=== PATIENT | male | born 1950 | race Caucasian/White ===

== ENCOUNTER → 2019-04-25 | Outpatient (CLI) | payer OTHER ==
[~2019-04-25] VITALS: Ht 180.3 cm; Wt 99.3 kg
[~2019-04-25] MED LIST: ALFUZOSIN HCL10 MG PO; AMITRIPTYLINE H25 M3 PO; ASPIR 8181 MG PO; BENTYL 10 MG CA10 MG PO; FLUOCINOLONE AC20 ML OTIC; MOBIC15 MG PO; PANTOPRAZOLE SO40 M1 PO; PROSCAR 5MG TABL5 MG PO; VITAMIN B-12500 MCG PO; ZESTRIL20 MG PO
--- NOTE | 2019-04-26 08:29 | EKG ---
[place] [address] [facility] [email or web address] [address] ELECTROCARDIOGRAM REPORT Name: JOAN CANTRELL [facility] [id number] ������������������ Admission: 04/25/19 ������������������ Attend Phys: Hugo Calvillo MD Discharge: ������������������ Date of : 46 Report #: [id number] ����������������������������������������������������������������� [id number] THIS REPORT FOR: //name// [facility] Test Date: 2019-04-25 Test Time: 09:52:46 Pat Name: JOAN CANTRELL Department: Room: Gender: M Master Baker: LIN : 1950 Requested By: Deysi English Order Number: [id number] MD: Yevgeniy Schroeder Measurements Intervals [place] Rate: 43 P: 44 MI: 155 QRS: 33 QRSD: 118 T: 75 QT: 488 QTc: 413 Interpretive Statements Sinus bradycardia Otherwise no significant abnormality Compared to ECG 11/11/1999 09:01:34 No significant change was found Electronically Signed On 04-26-2019 8:29:25 CDT by Yevgeniy Schroeder [email or web address] ��������������������������������������������� <ELECTRONICALLY SIGNED> ���������������������������������������� By: Yevgeniy Schroeder MD, [facility] ��������������������������������������������� 04/26/19 0829 1 Yevgeniy Schroeder MD, [facility] /EPI
--- NOTE | 2019-04-26 16:39 | P ---
[facility] [place] [address] PROCEDURE REPORT Name: JOAN CANTRELL Room #: REG [facility]#: [id number] Admission: 04/25/19 ������������������ Attend Phys: Hugo Calvillo MD Discharge: ������������������ Date of : 46 Report #: [id number] THIS REPORT FOR: //name// CC: Hugo Trujillo MD DATE OF SERVICE: 04/25/2019 BRIEF HISTORY: The patient is a 68-year-old male with history of colon polyps for high risk screening exam. PREOPERATIVE DIAGNOSIS: High risk screening colonoscopy due to history of colon polyps. POSTOPERATIVE DIAGNOSES: 1. Multiple colon polyps. 2. Small internal hemorrhoids. MEDICATIONS: Deep sedation with propofol per anesthesia. SPECIMENS: 1. Ascending colon polyps x 2. 2. Polyp at 40 cm. ESTIMATED BLOOD LOSS: 3 mL. PROCEDURE: Colonoscopy to cecum and terminal ileum with biopsy. FINDINGS: Prior to propofol sedation, procedure of colonoscopy discussed with the patient as well as potential risks and its complications. He indicates he understands and desires to proceed. DESCRIPTION OF PROCEDURE: With the patient in left lateral decubitus position, digital examination was completed, which revealed no abnormalities. Subsequently, the Olympus video colonoscope was introduced in the rectum, advanced under direct vision to the cecum. This was done with minimal difficulty. The cecum was identified by the ileocecal valve and the appendiceal orifice. I was able to visualize the distal segment of the terminal ileum, which was inspected and noted to be unremarkable. At that point, scope was slowly withdrawn and careful circumferential views obtained including retroflexing the scope in the ascending colon. Upon slow withdrawal of the scope, the prep was good. The mucosa was within normal limits, normal vascular pattern and normal light reflex. As we withdrew the scope, he was noted to have two diminutive polyps in the proximal ascending colon, which removed with biopsy forceps. The scope was further withdrawn and no additional abnormalities were [facility] [address] [place] [address] PROCEDURE REPORT Name: JOAN CANTRELL Room #: REG [facility].#: [id number] Admission: 04/25/19 ������������������ Attend Phys: Hugo Calvillo MD Discharge: ������������������ Date of : 46 Report #: [id number] noted until the sigmoid colon was reached at which point, another diminutive polyp was seen and removed with biopsy forceps. The scope was withdrawn into the rectum and on retroflexion, small hemorrhoids were seen. No abnormalities were identified. Scope was withdrawn. The patient tolerated the procedure well. CONDITION OF THE PATIENT UPON DISCHARGE: Following procedure, the patient drowsy, aroused, conversant and will be discharged home when fully ambulatory. INSTRUCTIONS TO THE PATIENT AND FAMILY AT THE TIME OF DISCHARGE: Three diminutive polyps removed as described above. We will follow up on path. If all three are adenomas, return in three years; if only one or two adenomas, then he is to return in five years. If none are adenomas, 10 years would be indicated. Suggest high fiber diet. He will return under the care of Dr. Joseph Trujillo and return to see me as needed. It is noted on digital rectal exam that the patient has an enlarged prostate, which is slightly asymmetrical, but no nodules or masses were felt. We will discuss with the patient. ��������������������������������������������� <ELECTRONICALLY SIGNED> ���������������������������������������� By: Hugo Calvillo MD ��������������������������������������������� 04/26/19 1639 0915 1144 Hugo Calvillo MD /nt
--- NOTE | 2019-04-26 17:05 | PATH ---
[facility] [address] [place] [address] PATHOLOGY RPT PROCEDURE Name: JOAN CANTRELL ISABELLE Room #: REG [facility]#: [id number] ������������������ Admission: 04/25/19 ������������������ Date of : 46 Discharge: Report #: [id number] Path Case #: [id number] [facility] Accession Number: [id number] . 01 Material submitted: . PART A: colon - BX POLYP AT PROXIMAL ASCENDING COLON X2. Modifiers: ascending, proximal PART B: colon - BX POLYP AT 40CM . 01 Clinical history: . Colon polyps, hemorrhoids . 02 Diagnosis: A. Polyp x2, at proximal ascending colon, endoscopic biopsy: - All fragments showing tubular adenoma. - Negative for high-grade dysplasia. . B. Polyp, at 40 cm, endoscopic biopsy: - Tubular adenoma. - Negative for high-grade dysplasia. (IUV:hyacinth; 04/26/2019) QMS/04/26/2019 . 02 Electronically signed: . Ashley Simpson MD, Pathologist NPI- [id number] . 01 Gross description: . A. The specimen is received in formalin, labeled "Joan Cantrell, BX polyp proximal ascending colon x2", are 4 irregular fragments of stewart soft tissue measuring 0.3 x 0.3 x 0.1 cm in aggregate, entirely submitted in A1. . B. The specimen is received in formalin, labeled "Joan Cantrell, BX polyp at 40 cm", is a stewart soft tissue measuring 0.3 x 0.2 cm, entirely submitted in B1. ([facility]; 04/25/2019) SHS/SHS . 02 Pathologist provided ICD-10: D12.2, D12.6 . 02 CPT . 932566, 254693 Specimen Comment: A courtesy copy of this report has been sent to Specimen Comment: [phone], . Specimen Comment: Report sent to / [place] [address] PATHOLOGY RPT PROCEDURE Name: JOAN CANTRELL ISABELLE Room #: REG [facility]#: [id number] ������������������ Admission: 04/25/19 ������������������ Date of : 46 Discharge: Report #: [id number] Path Case #: [id number] Performed at: 01 [facility] Jesus Stratton [address], [place] [id number] MD Francis Chu MD Phone: [phone] Performed at: [address] [id number] MD Ashley Simpson MD Phone: [phone]
== END | disposition home or self-care (01) ==
LOC: GI 07:22
DX: Z12.11 Encounter for screening for malignant neoplasm of colon (principal); Z86.010 Personal history of colon polyps; D12.2 Benign neoplasm of ascending colon; D12.5 Benign neoplasm of sigmoid colon; K64.8 Other hemorrhoids; I10 Essential (primary) hypertension; K21.9 Gastro-esophageal reflux disease without esophagitis; M19.90 Unspecified osteoarthritis, unspecified site; N40.0 Benign prostatic hyperplasia without lower urinary tract symptoms; Z90.49 Acquired absence of other specified parts of digestive tract; Z87.442 Personal history of urinary calculi; Z87.891 Personal history of nicotine dependence; Z98.890 Other specified postprocedural states; Z79.899 Other long term (current) drug therapy; Z79.82 Long term (current) use of aspirin
CPT/HCPCS: 62110; 62900

== ENCOUNTER → 2019-05-23 | Outpatient (CLI) | payer OTHER ==
--- NOTE | 2019-05-26 23:12 | SLE ---
[facility] [place] [address] POLYSOMNOGRAPHY STUDY Name: JOAN CANTRELL Room #: REG [facility]#: [id number] Admission: 05/23/19 ������������������ Attend Phys: Jose Laguna MD Discharge: ������������������ Date of : 46 Report #: [id number] THIS REPORT FOR: //name// CC: Jose Trujillo MD DATE OF SERVICE: 05/23/2019 ATTENDING PHYSICIAN: Joseph Trujillo MD. The patient is 69 years old who weighs 219 pounds with a BMI of 30.5. The patient has moderate subjective hypersomnia with an Manheim score of 13. The patient underwent diagnostic sleep study performed at [facility]. During the night study, the patient spent 392 minutes in bed and slept for 327 minutes with a sleep efficiency of 83%. Sleep latency was 5.8 minutes with a REM latency of 185 minutes. Sleep architecture showed normal stage 1 sleep, increased stage 2 sleep, absent slow wave and normal REM sleep. During the night study, the patient had 23 obstructive apneas, 1 mixed apnea and 4 central apneas and 7 hypopneas. The patient's apnea hypopnea index was 6.4 per hour with a REM index of 8.4 per hour and a supine index of 7.4 per hour. EKG monitoring revealed an average heart rate during sleep of 43 beats per minute with a maximum of 84 beats per minute. PVCs and PACs were seen, but no sustained arrhythmias observed. PLMs were seen at an index of 14 per hour and 2 per hour caused EEG arousals. Nocturnal oximetry study revealed an average oxygen saturation of 97% with a lowest of 88%. No clinically significant desaturation of less than 88% were observed. Due to low AHI, the patient did not met the split night criteria for CPAP initiation. IMPRESSION: 1. Mild sleep apnea-hypopnea syndrome at an apnea hypopnea index of 6.4 per hour. 2. Mild periodic limb movements. 3. Sinus bradycardia. 4. No significant nocturnal hypoxia. RECOMMENDATIONS: 1. The patient has mild sleep apnea. The patient is clinically symptomatic [facility] [address] [place] [address] POLYSOMNOGRAPHY STUDY Name: JOAN CANTRELL Room #: REG [facility]#: [id number] Admission: 05/23/19 ������������������ Attend Phys: Jose Laguna MD Discharge: ������������������ Date of : 46 Report #: [id number] with an Manheim score of 13. The patient would benefit from treatment of sleep apnea with either an oral appliance or a trial of CPAP titration. 2. Weight loss is also strongly advised. 3. Avoid [employer] depressants. 4. Cautioned regarding driving until the patient's hypersomnia is resolved with the above recommendations. 5. PLMs do not need to be treated unless the patient has ssymptoms of restless legs during the day. ��������������������������������������������� <ELECTRONICALLY SIGNED> ���������������������������������������� By: Jose Laguna MD ��������������������������������������������� 05/26/19 2312 1831 1841 Jose Laguna MD /nt
== END ==
LOC: SLEEPLAB 14:37
DX: G47.30 Sleep apnea, unspecified (principal); G47.61 Periodic limb movement disorder; R00.1 Bradycardia, unspecified; R41.3 Other amnesia; G25.81 Restless legs syndrome; G47.9 Sleep disorder, unspecified

== ENCOUNTER → 2020-08-04 | Outpatient (CLI) | payer OTHER | LOC: MRI 12:03 | PROVIDERS: ATTEND Family Medicine | DX: G31.9 Degenerative disease of nervous system, unspecified (principal); F03.90 Unspecified dementia, unspecified severity, without behavioral disturbance, psychotic disturbance, mood disturbance, and anxiety ==